=== PATIENT | male | born 2000 | race Caucasian/White ===

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

== ENCOUNTER 2018-10-24 19:05 | Emergency (ER) | payer OTHER ==
[2018-10-24 19:20] VITALS: BP 131/72
--- NOTE | 2018-10-24 19:32 | UC ---
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 she thought it was d/t allergies in combination of stopping 'ajuvio? sp (fake cigg). -found a small red spot on right distal leg. not bull's eye like. 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 he did not see a tic. - History of Current Complaint Chief Complaint: UCGeneralIllness Time Seen by Provider: 10/24/18 19:23 Stated Complaint: TICK BITE Pain Intensity: 0 - Allergy/Home Medications Allergies/Adverse Reactions: Allergies Allergy/AdvReac Type Severity Reaction Status Date / Time No Known Allergies Allergy Verified 06/10/17 08:51 Home Medications: Home Medications Acetaminophen [Tylenol Extra Strength] 1,000 mg ONCE 10/24/18 [History Confirmed 10/24/18] Cetirizine HCl [Zyrtec] 10 mg PO DAILY 10/24/18 [History Confirmed 10/24/18] Fluticasone NASAL SPRAY 50MCG* [Flonase NASAL SPRAY 50MCG*] 2 spray BOTH NARES BID 10/24/18 [History Confirmed 10/24/18] PMH/Surg Hx/FS Hx/Imm Hx Previously Healthy: Yes - Surgical History Surgical History: None - Family History Known Family History: Positive: Hypertension Negative: Respiratory Disease - no asthma - Social History Alcohol Use: Occasionally Alcohol Amount: once every two weeks Substance Use Type: None Smoking Status (MU): Never Smoked Tobacco Household Exposure Type: Cigarettes - Immunization History Most Recent Influenza Vaccination: no Vaccination Up to Date: Yes Review of Systems All Other Systems Reviewed And Are Negative: Yes Constitutional: Positive: Fatigue Skin: Positive: Other - rt leg small spot Eyes: Positive: Negative ENT: Positive: Negative Respiratory: Positive: Cough. Negative: Shortness Of Breath Cardiovascular: Positive: Negative. Negative: Palpitations, Chest Pain Gastrointestinal: Positive: Negative Genitourinary: Positive: Negative Motor: Positive: Negative Neurovascular: Positive: Negative Musculoskeletal: Positive: Negative Neurological: Positive: Headache Psychological: Positive: Negative Is Patient Immunocompromised?: No Physical Exam Triage Information Reviewed: Yes Appearance: Well-Appearing, No Pain Distress, Well-Nourished Vital Signs: Initial Vital Signs Temp 100.4 F 10/24/18 19:14 Pulse 89 10/24/18 19:14 Resp 16 10/24/18 19:14 BP 131/72 10/24/18 19:14 Pulse Ox 97 10/24/18 19:14 Eye Exam: Normal ENT Exam: Normal ENT: Positive: Pharynx normal, TMs normal, Uvula midline. Negative: Nasal congestion, Nasal drainage, TM bulging, TM dull, TM red, Hoarse voice, Sinus tenderness Dental Exam: Normal Neck exam: Normal Neck: Positive: Supple, Nontender, No Lymphadenopathy Respiratory Exam: Normal Respiratory: Positive: Lungs clear, Normal breath sounds, No respiratory distress, No accessory muscle use. Negative: Crackles, Rhonchi, Stridor, Wheezing Cardiovascular Exam: Normal Cardiovascular: Positive: RRR, No Murmur, Pulses Normal Abdominal Exam: Normal Abdomen Description: Positive: Nontender, Soft Musculoskeletal Exam: Normal Neurological Exam: Normal Psychological Exam: Normal Skin: Positive: Other - right medial low leg with 4 mm round red lesion. not blanching. no bull's eye lesion. no streaks. no vessicles. possible small central opening. Course/Dx - Course Course Of Treatment: -lesion on leg is not c/w bull's eye lesion. -low suspcion for tic bite/lyme -offered labs for cbc, TFTs and lyme but they declines -likely viral and or allergies. attributing to cough and SMART -f/u with PCP -they are very pleased with this plan - Differential Diagnoses - Skin Complaint Differential Diagnoses: Viral Exanthem, Other - virus, bug bite - Diagnoses Provider Diagnosis: Cough, Rash and nonspecific skin eruption Discharge - Sign-Out/Discharge Documenting (check all that apply): Patient Departure All imaging exams completed and their final reports reviewed: No Studies - Discharge Plan Condition: Stable Disposition: HOME Patient Education Materials: Acute Headache (ED) Referrals: MARINO Granados [Primary Care Provider] - 1 Week Additional Instructions: You can take tylenol or ibuprofen for the pain. Plenty of fluids and rest. - Billing Disposition and Condition Condition: STABLE Disposition: Home
== END 2018-10-24 19:42 | disposition home or self-care (01) ==
LOC: UCCORT 19:05
DX: R05 Cough (principal); R21 Rash and other nonspecific skin eruption; Z77.22 Contact with and (suspected) exposure to environmental tobacco smoke (acute) (chronic)
CPT/HCPCS: 99211; G0463